=== PATIENT | female | born 1955 | race Caucasian/White ===

== ENCOUNTER → 2022-05-31 | Outpatient (CLI) | payer MEDICARE ==
[~2022-05-31] MED LIST: ACYC800 PO; CLON.5 PO; CYCL0.05OP OP; HYDACE10B PO; HYDACE5 PO; LISI20 PO; MODA200 PO; RXHYDACE PO; SERT100 PO; SIMV40 PO; ZOLP10 PO
== END | disposition home or self-care (01) ==
LOC: LAB 10:10 → LAB SHORT 10:10
DX: L08.9 Local infection of the skin and subcutaneous tissue, unspecified (principal); D48.5 Neoplasm of uncertain behavior of skin; L57.0 Actinic keratosis
CPT/HCPCS: 87070; 87077; 87147; 87186; 87205